=== PATIENT | female | born 1975 | race Hispanic/Latino ===

== ENCOUNTER → 2018-06-11 | Outpatient (REF) | payer SELFPAY ==
[~2018-06-11] MED LIST: PERCOCET 5/325M1 TAB PO
== END | disposition home or self-care (01) | DRG 561 ==
LOC: DI 14:48
PROVIDERS: ATTEND Podiatrist Foot & Ankle Surgery
DX: S82.831D Other fracture of upper and lower end of right fibula, subsequent encounter for closed fracture with routine healing (principal)